=== PATIENT | female | born 1935 | race Caucasian/White ===

== ENCOUNTER 2024-10-17 08:32 | Emergency (ER) | payer MEDICARE, MEDICAID, SELFPAY ==
[2024-10-17 08:45] VITALS: BP 125/85; PULSE 96; RESP 16; TEMP 37; O2SAT 98; BMI 21.0
[2024-10-17 09:38] LABS: MANUAL DIFF FLAG NO
[2024-10-17 09:40] LABS: Basophils Percent Auto 0.5 % (0-2); Eosinophils Absolute Auto 0.1 X10*3/uL (0.0-0.4); Eosinophils Percent Auto 1.7 % (0-4); Hematocrit 43.8 % (37.0-47.0); Hemoglobin 14.8 g/dl (12.0-16.0); Imm Gran Abs Auto 0.01 X10*3/uL (0.00-0.03); Imm Gran Pct Auto 0.2 % (0.0-0.4); Lymphocytes Absolute Auto 1.6 X10*3/uL (1.2-4.9); Lymphocytes Percent Auto 23.4 % (20-40); Mean Corpuscular HGB Conc 33.8 g/dl (31.0-35.0); Mean Corpuscular Hemoglobin 30.9 pg (27.0-33.0); Mean Corpuscular Volume 91.4 fL (80.0-98.0); Mean Platelet Volume 9.9 fL (9.4-12.3); Monocytes Absolute Auto 0.6 X10*3/uL (0.1-1.2); Monocytes Percent Auto 8.4 % (2-11); Neutrophils Absolute Auto 4.4 x10*3/uL (2.0-8.3); Neutrophils Percent Auto 65.8 % (45-73); Platelet Count 219 X10*3/uL (160-400); Red Blood Count 4.79 X10*6/uL (4.20-5.50); Red Cell Distribution Width 12.6 % (11.0-16.0); White Blood Count 6.6 X10*3/uL (4.8-10.8)
[2024-10-17 09:56] LABS: Alanine Aminotransferase 15 U/L (0-31); Albumin Level 3.8 g/dL (3.5-5.0); Alkaline Phosphatase 86 U/L (39-117); Anion Gap 14 (12-20); Aspartate Amino Transferase 18 U/L (5-31); Bilirubin Total 0.8 mg/dL (0.0-1.0); Blood Urea Nitrogen 13 mg/dL (9-16); Calcium 10.3 mg/dL (8.4-10.2); Carbon Dioxide 25 mmol/L (22-29); Chloride 101 mmol/L (96-108); Creatinine Clr Calc Pharmacy 35.8; Estimated Glomerular Filt Rate > 60; Potassium 4.8 mmol/L (3.3-5.1); Sodium 135 mmol/L (135-145); Total Protein 7.7 g/dL (6.5-8.0)
[2024-10-17 09:58] LABS: Glucose Random 473 mg/dL (60-115)
[2024-10-17 10:16] LABS: Appearance Urine Clear; Color Urine Yellow; Glucose Urine UA >=1000 mg/dL (Negative); Leukocyte Esterase Urine Negative (Negative); Nitrite Urine Negative (Negative); Specific Gravity - Urine >= 1.030 (1.005-1.025); UMIC TRIGGER UACC YES; Urine Blood Negative (Negative); Urine Ketones Negative (Negative); Urine Protein Trace mg/dL (Neg-Trace)
[2024-10-17 10:22] LABS: Bacteria Urine None Seen (None Seen); Hyaline Casts Urine 0-2 /LPF (0-2); RBC Urine 0-2 /HPF (0-2); Squamous Epithelial Cell Urine 0-2 /HPF (0-2); WBC Urine 0-5 /HPF (0-5)
--- OUTSIDE RECORDS SUMMARY | 2024-10-17 10:24 | XMS_ITS | Encounter Summary ---
Author Organization [employer] Address [address] [facility] 7t [place] [address] Care Team Providers Care Satellite Dish Technician Name Role Phone Ashley Hoffman MD Primary Care Provider [phone] Reason for Visit * Reason Onset Date Comments NEW PATIENT APPOINTMENT 10/16/2024 URGENT Encounter Details Date Type Department Care Team ([facility] st Contact Info) Description 10/16/2024 Telephone [facility] [address] [place] [address] Sarah Jarrett RN [address] [place] [address] NEW PATIENT APPOINTMENT (URGENT) Social History Tobacco Use Types Packs/Day Years Used Date Smoking Tobacco: Never Assessed Comments Unknown Sex and Gender Information Value Date Recorded Sex Assigned at Female 06/27/2022 10:23 AM EDT Legal Sex Female 10:23 AM EDT Gender Identity Female 06/27/2022 10:23 AM EDT Sexual Orientation Straight 06/27/2022 10 :23 AM EDT documented as of this encounter Miscellaneous Notes * Telephone Encounter - Ayesha Kearney - 10/16/2024 2:03 PM EST (2x ) Outgoing call to pt to book NEUROLOGY PHYSICIAN ASSISTANT appt. No answer. Left message. * Telephone Encounter - Sarah Jarrett RN - 10/16/2024 10:58 AM EST Please contact for an urgent NEUROLOGY PHYSICIAN ASSISTANT appt. documented in this encounter Plan of Treatment Not on file documented as of this encounter Visit Diagnoses Not on filedocumented in this encounter Care Teams Satellite Dish Technician Relationship Specialty Start Date End Date Ashley Hoffman MD [address] [place] [address] PCP - General Family Medicine 04/26/21 documented as of this encounter
--- OUTSIDE RECORDS SUMMARY | 2024-10-17 10:24 | XMS_ITS | Clinical Summary ---
Author Organization [employer] Address [address] [facility] 7t [place] [address] Care Team Providers Care Supply Chain Generalist Name Role Phone Ashley Hoffman MD Primary Care Provider [phone] Encounters Date Type Department Care Team Description 10/16/[address] [facility] [address] [place] [address] Sarah Jarrett, RN NEW PATIENT APPOINTMENT (URGENT) from Last 3 Months Social History Tobacco Use Types Packs/Day Years Used Date Smoking Tobacco: Never Assessed Comments Unknown Sex and Gender Information Value Date Recorded Sex Assigned at Female 06/27/2022 10:23 AM EDT Legal Sex Female 10:23 AM EDT Gender Identity Female 06/27/2022 10:23 AM EDT Sexual Orientation Straight 06/27/2022 10 :23 AM EDT Last Filed Vital Signs Vital Sign Reading Time Taken Comments Blood Pressure 140/100 01/12/2021 12:05 AM EDT Pulse 72 01/12/2021 12:05 AM EDT Temperature - - Respiratory Rate - - Oxygen Saturation - - Inhaled Oxygen Concentration - - Weight 52 kg (114 lb 9.6 oz) 01/12/2021 12:05 AM EDT Height 152.4 cm (5') 01/12/2021 12:05 AM EDT Body Mass Index 22.38 01/12/2021 12:05 AM EDT Plan of Treatment Health Maintenance Due Date Last Done Comments Depression Screening 1935 SDOH Screening 1935 Alcohol/Substance Use Screening 1947 Tobacco Screening 1947 DTaP/Tdap/Td Vaccines (1 - Tdap) 01/14/1955 Pneumococcal Vaccine: 50+ Ye ars (1 of 1 - PCV) 01/14/1986 Zoster Vaccines (1 of 2) 01/14/1986 RSV Patients and Pa tients Aged 60 years or older (1 - 1-dose 75+ series) 01/14/2011 COVID-19 Vaccine (2 - 2023-2 5 season) 2024 07/14/2021 Influenza Vaccine (#1) 2024 Lipid Panel 01/12/2026 01/12/2021 HIB Vaccines Aged Out No longer eligi ble based on patient's age to complete this topic HPV Vaccines Aged Out No longer eligi ble based on patient's age to complete this topic Hepatitis A Vaccines Aged Out No long er eligible based on patient's age to complete this topic Hepatitis B Vaccines Aged Out No long er eligible based on patient's age to complete this topic IPV Vaccines Aged Out No longer eligi ble based on patient's age to complete this topic Meningococcal Vaccine Aged Out No oswaldo alvarado eligible based on patient's age to complete this topic RSV under 20 months Aged Out No longe r eligible based on patient's age to complete this topic Rotavirus Vaccines Aged Out No longer eligible based on patient's age to complete this topic Procedures Procedure Name Priority Date/Time Associated Diagnosis Comments LIPID PANEL, STANDARD Routine 01/12/2021 9:55 AM EDT from Last 3 Months or Most Recently Relevant to Health Maintenance Results * (ABNORMAL) LIPID PANEL, STANDARD (01/12/2021 9:55 AM EDT) Chol/HDLC Ratio 3.1 <5.0 (calc) [facility] Cholesterol, Total 199 <200 mg/dL [facility] HDL Cholesterol 64 > OR = 50 mg/dL [facility] LDL Cholesterol 113(H) mg/dL (calc) [facility] Comment: Reference range: <100 ?? Desirable range <100 mg/dL for primary prevention; ?? <70 mg/dL for patients with CHD or diabetic patients ?? with > or = 2 CHD risk factors. ?? LDL-C is now calculated using the Flori ?? calculation, which is a validated novel method providing ?? better accuracy than the Friedewald equation in the ?? estimation of LDL-C. ?? Bijan PRATER et al. AIYANA. 2013;310(19): 0588-0960 ?? (http://education.Kii.eco4cloud/faq/TMG874) Non-HDL Cholesterol 135(H) <130 mg/dL (calc) [facility] Comment: For patients with diabetes plus 1 major ASCVD risk ?? factor, treating to a non-HDL-C goal of <100 mg/dL ?? (LDL-C of <70 mg/dL) is considered a therapeutic ?? option. Triglycerides 117 <150 mg/dL [facility] 01/12/2021 9:55 AM EDT us Leah Sahni MD LAB BLOOD ORDERABLES Final Re sult [facility] [address] from Last 3 Months or Most Recently Relevant to Health Maintenance Insurance * Guarantor: Nancy Villalta Account Type Relation to Patient Date of Phone Billing Address Personal/Family Self 1935 [address] [facility] [address] [place] [id number] [facility] STANDARD MEDICARE Care Teams Supply Chain Generalist Relationship Specialty Start Date End Date Ashley Hoffman MD [address] [place] [id number] PCP - General Family Medicine 04/26/21
--- OUTSIDE RECORDS SUMMARY | 2024-10-17 10:24 | XMS_ITS ---
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) ACTIVE 07/07/2018 HYPO-OSMOLALITY AND HYPONATREMIA (E87.1 - ICD-10-CM) A CTIVE 07/07/2018 HYPOKALEMIA (E87.6 - ICD-10-CM) ACTIVE 8 METABOLIC ENCEPHALOPATHY (G93.41 - ICD-10-CM) ACTIVE 07/07/2018 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
[2024-10-17 10:39] LABS: Beta-Hydroxybutyrate 0.06 mmol/L (0.02-0.27); Magnesium 2.1 mg/dL (1.6-2.6)
== END 2024-10-17 19:53 | disposition left against medical advice (07) ==
PROVIDERS: Emergency Medicine; Physician Assistant; Emergency Provider Emergency Medicine
DX: R41.0 Disorientation, unspecified (principal); Z79.899 Other long term (current) drug therapy
CPT/HCPCS: 36415; 80053; 81001; 82010; 83735; 85025; 99281; 99282

== ENCOUNTER 2024-10-19 10:17 | Emergency (ER) | payer MEDICARE, MEDICAID, SELFPAY ==
--- NOTE | 2024-10-19 | ECG_ITS ---
Test Reason : ALTERED MENTAL STAT Blood Pressure : */* mmHG Vent. Rate : 76 BPM Atrial Rate : 76 BPM P-R Int : 132 ms QRS Dur : 100 ms QT Int : 400 ms P-R-T Axes : 69 -49 159 degrees QTcB Int : 450 ms Sinus rhythm with marked sinus arrhythmia Left axis deviation Left ventricular hypertrophy with repolarization abnormality ( Cj product ) Abnormal ECG When compared with ECG of 05-Jul-2018 10:19, Significant changes have occurred Referred By: Generic ED Physician Electronically Signed By: ABIODUN FORTUNE
--- NOTE | ~2024-10-19 | MR_ITS ---
EXAMINATION: MR BRAIN WITHOUT THEN WITH IV CONTRAST HISTORY: Subcentimeter hyperattenuating parafalcine lesion on unenhanced CT. Evaluate for hemorrhage versus meningioma. TECHNIQUE: Sagittal T1, and axial T1, FLAIR, T2, gradient echo, and diffusion weighted MR images of the brain were obtained. Subsequently, sagittal, axial, and coronal T1-weighted images were obtained after the administration of intravenous gadolinium. 5.5 mL Gadavist was administered. COMPARISON: Correlation is made with the unenhanced head CT scans dated 10/20/2024 and 10/19/2024. FINDINGS: There is diffuse prominence of the ventricular system and cortical sulci, consistent with atrophy. Periventricular and subcortical white matter hyperintensities are noted on the FLAIR and T2-weighted images which are nonspecific, but often seen in the setting of small vessel ischemic disease. There is no mass effect or midline shift. No intra or extra-axial fluid collections are identified. There are no foci of restricted diffusion. There is a 5 mm enhancing nodule along the right aspect of the falx consistent with a meningioma. Normal vascular flow voids are noted in the basilar and carotid arteries. The visualized paranasal sinuses are clear. MR/MR head/brain wo/w con IMPRESSION: 1. 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 No evidence of intracranial hemorrhage. 2. No acute intracranial abnormality. Electronically signed by: Javier Sahu MD 10/21/2024 02:30 PM [facility]
--- NOTE | ~2024-10-19 | XR_ITS ---
XR SCREENING FOR MRI Comparison: None. TECHNIQUE: PA and lateral views of the chest, and AP view of the abdomen were obtained. FINDINGS: There is no radiopaque metallic foreign body within the chest, abdomen, or pelvis. These regions are cleared for MRI. The cardiac, hilar, and mediastinal contours are normal. The aorta is calcified and tortuous. The lungs are clear bilaterally. There is no pleural effusion or pneumothorax. Review of the abdomen demonstrates a normal/nonspecific bowel gas pattern and diffuse vascular calcifications. No organomegaly. There are approximately three 5 mm calculi overlying the right renal shadow suspicious for renal stones. There are degenerative changes throughout the spine. There are mild degenerative changes in both hip joints and SI joints. XR/XR pre mri screening IMPRESSION: 1. No metallic foreign body identified. Examination is clear for MRI. 2. There is no active pulmonary disease. 3. There are 3 probable nonobstructing right renal stones measuring up to 5 mm. 4. There are vascular calcifications. Electronically signed by: Kaden Kingston MD 10/21/2024 12:19 PM [facility]
--- NOTE | ~2024-10-19 | CT_ITS ---
CLINICAL HISTORY: Mental status change CT head without contrast Comparison: CT/KS/SR - BRAIN WO IV CONTRAST [id number] - 07/03/18 04:08 EST Findings: There is a new hyperattenuating lesion at the right aspect of the anterior falx measuring 4 x 5 x 6 mm ( series 2, image 28, series 8, image 86 and series 7, image 33 ). There is a small adjacent calcification which may indicate a meningioma ( series 7, image 35). The small calcification was also seen on the prior study (see series 3, image 29 on the prior study). Basal ganglia calcifications. No extra-axial fluid collection. No hydrocephalus, mass-effect or herniation. Suarez-white differentiation is maintained. There is patchy hypoattenuation of the periventricular and deep white matter, which is most likely the sequela of moderate chronic small vessel ischemic disease and is similar to the prior study. No acute orbital pathology. No acute soft tissue abnormality. No fracture. The visualized paranasal sinuses are predominantly clear. The mastoid air cells are clear. Impression: 6 mm focus of increased attenuation at the right aspect of the falx anteriorly, new since the prior study. This could be acute hemorrhage. A hypercellular lesion such as a meningioma may also be considered. Short interval follow up CT or further evaluation with brain MR with and without contrast may be helpful. This document has been electronically signed by: Annita Liang MD on 10/19/2024 13:21:23
--- NOTE | ~2024-10-19 | CT_ITS ---
CLINICAL HISTORY: recheck ich CT head without contrast Comparison: CT/SR - CT HEAD/BRAIN WO IV CON - 10/19/24 11:[address]/NM/SR - BRAIN WO IV CONTRAST [id number] - 07/03/18 04:08 EST Findings: The hyperattenuating lesion along the right aspect of the falx anteriorly is unchanged, measuring up to 6 mm. Basal ganglia calcifications. No extra-axial fluid collection. No hydrocephalus, mass-effect or herniation. Suarez-white differentiation is maintained. There is patchy hypoattenuation of the periventricular and deep white matter, which is most likely the sequela of moderate chronic small vessel ischemic disease and is similar to the prior studies . No acute orbital pathology. No acute soft tissue abnormality. No fracture. The visualized paranasal sinuses are predominantly clear. The mastoid air cells are clear. Impression: Unchanged subcentimeter hyperattenuating parafalcine lesion is favored to be a meningioma. This can be confirmed with brain MR with and without contrast. Acute intracranial hemorrhage is considered less likely. This document has been electronically signed by: Annita Liang MD on 10/20/2024 19:56:58
[2024-10-19 10:24] VITALS: BP 152/74; PULSE 83; PULSE 89; RESP 16; O2SAT 96; O2SAT 97; BMI 21.2
[2024-10-19 10:35] LABS: Glucose, Whole Blood 491 mg/dL (60-115)
[2024-10-19 10:50] LABS: MANUAL DIFF FLAG NO
[2024-10-19 10:52] LABS: Basophils Percent Auto 0.4 % (0-2); Eosinophils Absolute Auto 0.1 X10*3/uL (0.0-0.4); Eosinophils Percent Auto 1.1 % (0-4); Hematocrit 43.8 % (37.0-47.0); Hemoglobin 15.1 g/dl (12.0-16.0); Imm Gran Abs Auto 0.02 X10*3/uL (0.00-0.03); Imm Gran Pct Auto 0.3 % (0.0-0.4); Lymphocytes Absolute Auto 1.1 X10*3/uL (1.2-4.9); Lymphocytes Percent Auto 16.1 % (20-40); Mean Corpuscular HGB Conc 34.5 g/dl (31.0-35.0); Mean Corpuscular Volume 89.9 fL (80.0-98.0); Monocytes Absolute Auto 0.5 X10*3/uL (0.1-1.2); Monocytes Percent Auto 6.4 % (2-11); Neutrophils Absolute Auto 5.3 x10*3/uL (2.0-8.3); Neutrophils Percent Auto 75.7 % (45-73); Platelet Count 228 X10*3/uL (160-400); Red Blood Count 4.87 X10*6/uL (4.20-5.50); Red Cell Distribution Width 12.5 % (11.0-16.0); White Blood Count 7.1 X10*3/uL (4.8-10.8)
[2024-10-19 10:57] LABS: VBG Base Excess 0.7 mmol/L; VBG HCO3 26 mmol/L (22-26); VBG pCO2 43 mmHg; VBG pH 7.38 (7.32-7.43); VBG pO2 42 mmHg
[2024-10-19 10:58] LABS: Venous Blood Gas Refer to POC result
--- NOTE | 2024-10-19 11:15 | ED.GENADULT ---
HPI - General Adult General Chief complaint: Altered Mental Status Stated complaint: ams/hyperglycemic 410 Time Seen by Provider: 10/19/24 11:11 Source: patient, EMS and television repairer Mode of arrival: EMS Limitations: altered mental status History of Present Illness ED Provider: DR. Macario HPI narrative: 89-year-old female came in by ambulance for a change of mental status, patient is a limited historian may be secondary to dementia, patient is unable to provide a valid history even with the television repairer, unsuccessful attempt to call daughter's number in the chart (wrong phone number), patient stated that she has no complaint, no headache, no neck pain, no CP, no SOB, no abdominal pain, no nausea, no vomiting, no fever. Related Data Allergies Allergy/AdvReac Type Severity Reaction Status Date / Time No Known Allergies Allergy Unverified 10/19/24 10:26 [No Known Allergies*] Review of Systems Review of Systems: Yes Unobtainable due to mental status PMFSH Social History Social History Advance Directives: No Advance Directives Information Provided: No Physical Exam ED Vital Signs: Vital Signs - 24 hr 10/19/24 10:24 Pulse Rate 83 Respiratory Rate 16 Blood Pressure 152/74 H Pulse Oximetry 97 Oxygen Delivery Method Room Air BMI result Body Mass Index 21.2 Vital signs have been reviewed and appear to be correct. Blood pressure elevated. Heart rate normal. Respiratory rate normal. Temperature normal. Oxygen saturation normal. Appearance: Alert. Disoriented x4 No acute distress. Head: Normal external exam. Normocephalic. Atraumatic. No Stevens signs noted. No raccoon eyes noted Eyes: PERRLA. EOMI. Conjunctiva and sclera normal. Eyelids normal. ENT: TM's Normal. Pharynx normal. Uvula midline. Moist mucous membranes. No trismus noted. No drooling noted. No muffled voice noted. Neck: Normal inspection. Neck supple. FROM. No adenopathy. Thyroid Normal. No meningeal signs. No neck mass noted. CVS: Normal heart rate and rhythm. Heart sound normal. No murmurs noted. Pulses normal throughout. Respiratory: No respiratory distress. Painless inspiration. Breath sounds normal. No wheezes/rales/rhonchi noted. Chest nontender. No accessory muscle usage noted or decreased air movement noted. Abdomen: Soft and nontender. Bowel sounds normal in all 4 quadrants. No distention noted. No organomegaly noted. No visible injury noted. Back: No CVA tenderness. Full range of motion noted. Skin: Skin warm and dry. Normal skin color. Normal skin turgor. No rashes/lesions/lacerations noted. Extremities: No lower extremity edema. Extremities exhibit normal range of motion. Extremities nontender. Neuro: Disoriented x4 Cranial nerve exam: II-XII are grossly intact No motor deficit. No sensory deficit. Reflexes normal. Course Reevaluation(s) Reevaluation #1: 89-year-old female unknown past medical history, can not contact family for further history due to a wrong phone number in the chart, as per EMS history patient was evicted from her place and currently staying [facility], daughter can not take the patient to the [facility] anymore patient now is in the hospital with no complaints, head CT is a concern of area of hypoattenuation, no evidence of increased ICP or midline shift on the CT, the case was discussed with Dr. Okeefe in neuro ICU at [facility] who recommended to accept transfer to the hospitalist service and initiate the workup for abnormal head CT at [facility]. Bed placement at [facility] indicate that the hospital is at full capacity and patient needs to be kept in the emergency department until bed is available at [facility]. Will keep the patient physician observation. Time: 16:09 Medications Administered Generic Name Dose Route Start Last Admin Trade Name Freq PRN Reason Stop Dose Admin Metformin HCl 500 mg 10/19/24 11:45 10/19/24 12:46 Metformin Hcl 500 Mg Tablet PO 500 mg BID YOVANA Administration Medical Decision Making Differential Diagnosis Differential Diagnoses: The differential diagnosis associated with the presentation includes (Dementia, mental status change, UTI, electrolyte derangement, severe anemia, intracranial bleed.) Admission/Observation Consideration of admission/observation: Escalation of care including admission/observation considered Consult Healthcare Provider Management of the patient was discussed with: Hospitalist (Dr. Graham from [facility].) and General Maintenance Technician (Dr. Okeefe neuro ICU at [facility].) Lab Data MDM Lab Attestation statement: I reviewed the patient's lab results. 10/19/24 10:45 10/19/24 11:41 Labs: Lab Results 10/19/24 10/19/24 10/19/24 Range/Units 10:30 10:45 10:51 WBC 7.1 (4.8-10.8) X10*3/uL RBC 4.87 (4.20-5.50) X10*6/uL Hgb 15.1 (12.0-16.0) g/dl Hct 43.8 (37.0-47.0) % MCV 89.9 (80.0-98.0) fL MCH 31.0 (27.0-33.0) pg MCHC 34.5 (31.0-35.0) g/dl RDW 12.5 (11.0-16.0) % Plt Count 228 (160-400) X10*3/uL MPV 10.0 (9.4-12.3) fL Immature Gran % (Auto) 0.3 (0.0-0.4) % Neut % (Auto) 75.7 H (45-73) % Lymph % (Auto) 16.1 L (20-40) % Coryell % (Auto) 6.4 (2-11) % Eos % (Auto) 1.1 (0-4) % Baso % (Auto) 0.4 (0-2) % Lymph # (Auto) 1.1 L (1.2-4.9) X10*3/uL Coryell # (Auto) 0.5 (0.1-1.2) X10*3/uL Eos # (Auto) 0.1 (0.0-0.4) X10*3/uL Baso # (Auto) 0.0 (0.0-0.2) X10*3/uL Abs Immat Gran (auto) 0.02 (0.00-0.03) X10*3/uL Absolute Neuts (auto) 5.3 (2.0-8.3) x10*3/uL Absolute Nucleated RBC 0.000 (0.0-0.012) X10*3/uL Nucleated RBC % (auto) 0.0 (0.0-0.2) /100WBC VBG pH 7.38 (7.32-7.43) VBG pCO2 43 mmHg VBG pO2 42 mmHg VBG HCO3 26 (22-26) mmol/L VBG O2 Saturation 70.0 % VBG Base Excess 0.7 mmol/L Sodium (135-145) mmol/L Potassium (3.3-5.1) mmol/L Chloride (96-108) mmol/L Carbon Dioxide (22-29) mmol/L Anion Gap (12-20) BUN (9-16) mg/dL Creatinine (0.5-1.4) mg/dL Estim Creat Clear Calc Estimated GFR POC Glucose 491 H* (60-115) mg/dL Random Glucose (60-115) mg/dL Estimat Average Glucose 243 mg/dL Hemoglobin A1c % 10.1 H (<6.0) % Calcium (8.4-10.2) mg/dL Magnesium (1.6-2.6) mg/dL Total Bilirubin (0.0-1.0) mg/dL AST (5-31) U/L ALT (0-31) U/L Alkaline Phosphatase (39-117) U/L Total Protein (6.5-8.0) g/dL Albumin (3.5-5.0) g/dL Beta-Hydroxybutyrate (0.02-0.27) mmol/L Influenza Type A (PCR) NEGATIVE (Negative) Influenza Type B (PCR) NEGATIVE (Negative) RSV RNA Qual (PCR) NEGATIVE (Negative) SARS-CoV-2 RNA (RT-PCR) NEGATIVE (Negative) 10/19/24 10/19/24 Range/Units 11:41 12:21 WBC (4.8-10.8) X10*3/uL RBC (4.20-5.50) X10*6/uL Hgb (12.0-16.0) g/dl Hct (37.0-47.0) % MCV (80.0-98.0) fL MCH (27.0-33.0) pg MCHC (31.0-35.0) g/dl RDW (11.0-16.0) % Plt Count (160-400) X10*3/uL MPV (9.4-12.3) fL Immature Gran % (Auto) (0.0-0.4) % Neut % (Auto) (45-73) % Lymph % (Auto) (20-40) % Coryell % (Auto) (2-11) % Eos % (Auto) (0-4) % Baso % (Auto) (0-2) % Lymph # (Auto) (1.2-4.9) X10*3/uL Coryell # (Auto) (0.1-1.2) X10*3/uL Eos # (Auto) (0.0-0.4) X10*3/uL Baso # (Auto) (0.0-0.2) X10*3/uL Abs Immat Gran (auto) (0.00-0.03) X10*3/uL Absolute Neuts (auto) (2.0-8.3) x10*3/uL Absolute Nucleated RBC (0.0-0.012) X10*3/uL Nucleated RBC % (auto) (0.0-0.2) /100WBC VBG pH (7.32-7.43) VBG pCO2 mmHg VBG pO2 mmHg VBG HCO3 (22-26) mmol/L VBG O2 Saturation % VBG Base Excess mmol/L Sodium 134 L (135-145) mmol/L Potassium 4.4 (3.3-5.1) mmol/L Chloride 103 (96-108) mmol/L Carbon Dioxide 21 L (22-29) mmol/L Anion Gap 14 (12-20) BUN 17 H (9-16) mg/dL Creatinine 0.91 (0.5-1.4) mg/dL Estim Creat Clear Calc 35.3 Estimated GFR 58 POC Glucose 373 H* (60-115) mg/dL Random Glucose 429 H* (60-115) mg/dL Estimat Average Glucose mg/dL Hemoglobin A1c % (<6.0) % Calcium 10.6 H (8.4-10.2) mg/dL Magnesium 2.0 (1.6-2.6) mg/dL Total Bilirubin 0.9 (0.0-1.0) mg/dL AST 21 (5-31) U/L ALT 14 (0-31) U/L Alkaline Phosphatase 91 (39-117) U/L Total Protein 7.9 (6.5-8.0) g/dL Albumin 3.8 (3.5-5.0) g/dL Beta-Hydroxybutyrate 0.09 (0.02-0.27) mmol/L Influenza Type A (PCR) (Negative) Influenza Type B (PCR) (Negative) RSV RNA Qual (PCR) (Negative) SARS-CoV-2 RNA (RT-PCR) (Negative) Independent Interpretation I performed an independent interpretation of an: CT Scan (Head: 6 mm focus of increased attenuation at the right aspect of the falx anteriorly, new since the prior study. This could be acute hemorrhage. A hypercellular lesion such as a meningioma may also be considered. Short interval follow up CT or further evaluation with brain MR with and without co) Radiology Impression Discussion of test interpretation with radiology: I have reviewed the radiologist's reading. Discharge Plan Discharge Clinical Impression: Altered mental status, Abnormal CT of the head [facility] Details: [facility] Print Language: Brazilian
[2024-10-19 11:20] LABS: Estimated Average Glucose 243 mg/dL; Hemoglobin A1C 338.1012 umol/L; Hemoglobin A1c % 10.1 % (<6.0); Total Hemoglobin (HGBA1C) 3899.5026 umol/L
[2024-10-19 11:27] LABS: Influenza A PCR NEGATIVE (Negative); Influenza B PCR NEGATIVE (Negative); Resp Syncy Virus RNA Qual PCR NEGATIVE (Negative); SARS COV2 PCR INHOUSE NEGATIVE (Negative)
[2024-10-19 12:05] LABS: Beta-Hydroxybutyrate 0.09 mmol/L (0.02-0.27)
[2024-10-19 12:10] LABS: Alanine Aminotransferase 14 U/L (0-31); Albumin Level 3.8 g/dL (3.5-5.0); Alkaline Phosphatase 91 U/L (39-117); Anion Gap 14 (12-20); Aspartate Amino Transferase 21 U/L (5-31); Bilirubin Total 0.9 mg/dL (0.0-1.0); Blood Urea Nitrogen 17 mg/dL (9-16); Calcium 10.6 mg/dL (8.4-10.2); Carbon Dioxide 21 mmol/L (22-29); Chloride 103 mmol/L (96-108); Creatinine Clr Calc Pharmacy 35.3; Estimated Glomerular Filt Rate 58; Glucose Random 429 mg/dL (60-115); Potassium 4.4 mmol/L (3.3-5.1); Sodium 134 mmol/L (135-145); Total Protein 7.9 g/dL (6.5-8.0)
[2024-10-19 12:25] LABS: Glucose, Whole Blood 373 mg/dL (60-115)
[2024-10-19] MEDS: metFORMIN HCl 500 MG TABLET PO ×2 (12:46→23:29)
--- NOTE | 2024-10-19 19:28 | PC.NURSE ---
Pt reported to be evicted recently, daughter has been bringing her to [facility] for the last 5 nights, pt has history of dementia and family feels she is not safe to be out. Pt has been relocated from [place], since being here has not taken any medications, there is poor medical history at this time, POC have been elevated. Pt reporting she does not need to be here. Pt CT scan concerns for new bleed, pt to be transferred to [facility] when bed available. Pt has been changed over, diet order placed, pt remains on monitor a this time, all needs met. Pt did ambulate with stand by assist to BR.
[2024-10-19 19:31] VITALS: BP 157/81; PULSE 69; RESP 19; TEMP 36.8; O2SAT 97
[2024-10-19 22:22] LABS: Glucose, Whole Blood 362 mg/dL (60-115)
[2024-10-19 23:06] VITALS: BP 168/78; PULSE 71; RESP 22; O2SAT 94
[2024-10-20 02:12] LABS: Glucose, Whole Blood 293 mg/dL (60-115)
[2024-10-20] MEDS: Insulin Lispro 100 UNIT/ML 3 ML VIAL SUBCUT ×2 (02:12→21:19)
[2024-10-20 02:31] VITALS: BP 136/90; PULSE 59; RESP 22; O2SAT 93
--- NOTE | 2024-10-20 05:18 | PC.NURSE ---
Patient is awake, oriented to self and familiar person, no focal neurological deficits noted. Patient ambulated to the restroom with 1 assist, gait is slow, but steady. Patient resting on stretcher at this time.
[2024-10-20 05:55] VITALS: BP 130/70; PULSE 76; RESP 16; O2SAT 96
--- NOTE | 2024-10-20 08:19 | PHA.MEDREC ---
Pharmacy Consult ? Medication Reconciliation Pharmacy has attempted to complete the medication reconciliation. Patient is AMS, no claims available and patients contacts have out of service phone numbers.
[2024-10-20] MEDS: metFORMIN HCl 500 MG TABLET PO ×2 (12:07→21:18)
[2024-10-20 15:13] VITALS: BP 179/95; PULSE 95; RESP 16; TEMP 36.2; O2SAT 98
[2024-10-20] MEDS: Insulin Glargine,Hum.rec.anlog 100 UNIT/ML 10 ML VIAL 14 UNIT SUBCUT (19:42)
[2024-10-20 19:50] VITALS: BP 167/82; PULSE 85; RESP 16; TEMP 36.7; O2SAT 95
[2024-10-20 21:14] LABS: Glucose, Whole Blood 293 mg/dL (60-115)
[2024-10-21 03:29] VITALS: BP 184/84; PULSE 72; RESP 18; TEMP 36.8; O2SAT 97
[2024-10-21 07:12] LABS: Appearance Urine Cloudy; Color Urine Yellow; Glucose Urine UA >=1000 mg/dL (Negative); Leukocyte Esterase Urine Large (3+) (Negative); Nitrite Urine Negative (Negative); UMIC TRIGGER UACC YES; Urine Blood Negative (Negative); Urine Ketones Negative (Negative); Urine Protein Trace mg/dL (Neg-Trace)
[2024-10-21 07:17] LABS: Bacteria Urine 1+ (None Seen); RBC Urine 0-2 /HPF (0-2); Squamous Epithelial Cell Urine 0-2 /HPF (0-2); UACC Culture Trigger YES; WBC Urine >50 /HPF (0-5)
[2024-10-21 07:26] LABS: Glucose, Whole Blood 188 mg/dL (60-115)
--- NOTE | 2024-10-21 07:28 | PC.NURSE ---
Tomasa Villalta (granddaughter) - [phone].
[2024-10-21] MEDS: Insulin Lispro 100 UNIT/ML 3 ML VIAL SUBCUT ×3 (07:45→20:22)
[2024-10-21 07:52] VITALS: BP 153/76; PULSE 74; RESP 15; TEMP 36.7; O2SAT 95
--- NOTE | 2024-10-21 08:10 | PC.NURSE ---
this RN resumed care of pt at 0645. cy[employer]ot speaking only. alert and oriented to self. hx dementia baseline. vss and up to date. pt currently medically cleared at this time - no longer being transferred to [facility] d/t most recent repeated CT scan. IV access removed. pt currently pending PT/CM consult. pt having PT consult completed at this time. plan of care ongoing.
[2024-10-21 08:39] LABS: Amphetamine Screen Urine Not Detected (Not Detect); Barbiturates, Urine Not Detected (Not Detect); Benzodiazepines Screen Urine Not Detected (Not Detect); Buprenorphine Scr Not Detected (Not Detect); Cannabinoid Screen Urine Not Detected (Not Detect); Cocaine Screen Urine Not Detected (Not Detect); Fentanyl, urine Not Detected (Not Detect); Methadone Screen, Urine Not Detected (Not Detect); Opiate Screen Urine Not Detected (Not Detect); Oxycodone Screen Urine Not Detected (Not Detect); Phencyclidine Screen Urine Not Detected (Not Detect)
--- NOTE | 2024-10-21 08:53 | PC.NURSE ---
report given to ANJELICA Borges in overflow.
[2024-10-21] MEDS: metFORMIN HCl 500 MG TABLET PO ×2 (09:09→20:22)
[2024-10-21] MEDS: cefuroxime axetiL 250 MG TABLET PO ×2 (11:39→20:21)
--- NOTE | 2024-10-21 12:20 | PC.NURSE ---
Pt unable to reliably answer MRI screening questionnaire; PA made aware; pt to xray for KUB and CXR to clear her for MRI
[2024-10-21 12:23] LABS: Glucose, Whole Blood 127 mg/dL (60-115)
--- NOTE | 2024-10-21 13:55 | MHC.CM.ED ---
Received case management consult overnight. Patient has a history of dementia. No family present. No HCP on file. Patient was at [facility] in 2018. Left message for their medical records department to see if they have a HCP on file. Waiting for return telephone call. Per Yadira JOHNSTON, MRI is ordered and pending. Continue to monitor for d/c needs.
[2024-10-21] MEDS: gadobutroL 7.5 ML VIAL IVPUSH (14:02)
[2024-10-21 15:00] VITALS: BP 156/82; PULSE 76; RESP 15; TEMP 36.6; O2SAT 95
--- NOTE | 2024-10-21 15:09 | MHC.CM.ED ---
Patient remains in ER overflow. MRI completed. No acute issues. Patient has memory issues. No family present. Spoke with patient's granddaughter, Tomasa, via telephone at [phone]. Patient was living with her daughter, Cathy (Tomasa's mother). However patient and Cathy were evicted from their apartment on 10/15 due to having too many people entering their apartment and Cathy took a package that didn't belong to her. Per Tomasa, Cathy has a substance abuse issue. Tomasa only found out about eviction because she saw her grandmother and mother sitting in a parking lot of a gas station. Tomasa lives in [address] and is not able to have patient live with her. She was taking care of the patient during the day and found a snf for her at night. Tomasa is unable to continue doing this. Patient has [facility]. Will attempt to find LTC placement. Tomasa aware patient may be here a while and placement could be an hour away. Tomasa verbalizes understanding. Continue to monitor for d/c needs.
--- NOTE | 2024-10-21 15:15 | PC.NURSE ---
Employee walking through the Pain department (outside of OV) informed this RN that a patient had wandered into the bathroom after exiting through the back door; it was noted that the camera watching the door was unplugged; pt walked back to room with staff, commode provided, bed alarm on and camera room informed of the incident, enterprise resource analyst made aware
[2024-10-21 16:46] LABS: Glucose, Whole Blood 192 mg/dL (60-115)
[2024-10-21 20:00] VITALS: BP 179/79; PULSE 77; RESP 16; TEMP 36; O2SAT 93
[2024-10-21 20:00] LABS: Glucose, Whole Blood 218 mg/dL (60-115)
--- NOTE | 2024-10-21 20:00 | PC.NURSE ---
Patient alert to person, calm and cooperative. VSS, on room air, lungs clear. no respiratory distress noted. Denies any pain or discomfort. Camera added to bedside for safety. Bed alarm in place.
[2024-10-22 06:00] VITALS: BP 137/73; PULSE 71; RESP 16; TEMP 36.4; O2SAT 95
[2024-10-22 07:46] LABS: Glucose, Whole Blood 126 mg/dL (60-115)
[2024-10-22] MEDS: cefuroxime axetiL 250 MG TABLET PO ×2 (07:56→21:33)
[2024-10-22] MEDS: metFORMIN HCl 500 MG TABLET PO ×2 (07:56→21:33)
--- NOTE | 2024-10-22 10:04 | MHC.CM.ED ---
Addendum entered by Kate Elizabeth 10/22/24 10:16: Clinical updates sent to local facilities following: [facility], [facility], [facility], [facility] Original Note: Patient remains in ER overflow. Met with patient and court interpreter. Patient has dementia but is able to verbalize who her HCP would be. HCP completed, signed and witnessed. Clinical updates sent to facilities still following. Continue to monitor for d/c needs.
[2024-10-22 11:02] VITALS: BP 147/99; PULSE 71; RESP 16; TEMP 36.7; O2SAT 96
[2024-10-22 11:50] LABS: Glucose, Whole Blood 191 mg/dL (60-115)
[2024-10-22] MEDS: Insulin Lispro 100 UNIT/ML 3 ML VIAL SUBCUT ×3 (12:44→21:33)
[2024-10-22 14:00] VITALS: BP 145/95; PULSE 70; RESP 16; TEMP 36.7; O2SAT 97
[2024-10-22 14:47] LABS: Cholesterol 158 mg/dL (<200); HDL Cholesterol 64 mg/dL (>40); LDL Cholesterol Calculated 76 mg/dL (<100); Triglycerides 92 mg/dL (<150)
[2024-10-22 15:01] LABS: Vitamin D 25-OH Total 13.9 ng/mL (>30)
[2024-10-22 15:02] LABS: TSH reflex Free T4 1.18 uIU/mL (0.32-4.0)
[2024-10-22 15:16] LABS: Folate 9.1 ng/mL (> or = 4.0); Vitamin B12 267 pg/mL (200-900)
[2024-10-22 16:38] LABS: Glucose, Whole Blood 200 mg/dL (60-115)
--- NOTE | 2024-10-22 18:25 | PM.PSYCN ---
History of Present Illness Date of Service: 10/22/2024 Chief Complaint: ams/hyperglycemic 410 Reason for Consult: capacity assessment Discussed with referring provider: Yes Sources of Information: patient interviewed, chart reviewed and crisis/core team assessment reviewed HPI Narrative: Mrs. Villalta was brought via EMS after found confused. It appears she was recently living with her daughter who struggles with substance use issues and lost apartment. Mrs. Villalta has hx of memory impairments, multiple medical comorbidities including DM, HTN. She has not seen PCP in several years. Pertinent labs completed in the ED include CBC mostly unremarkable, CMP without electrolyte abnormalities, BUN 17, Creatinine 35.5, A1c 10.6%, Calcium elevated 10.6. UA positive for glucose, +leukocyte, +1 bacteria, culture not completed. Utox negative. She had brain MRI which shows atrophy, periventricular and subcortical white matter changes. It also showed 5mm right falx meningiona (ED attending had consulted with neurology surgeon at [facility] no need for inpatient admission at this point). Pt seen in her room. She reports she is here because she was brought here and was in the streets. She able to tell that she is in the hospital. She knows the month and year. When discussing her medical conditions, she reports she does not have any medical condition. When asked about elevated blood sugars, she reports it's not an issue anymore. She is not able to show understanding of current conditions being treated here, included uncontrolled DM. She denies depressed mood. No SI/HI. No signs of psychosis or delusions. Diagnostics Vital Signs (24Hr): Vital Signs - 24 hr 10/21/24 20:00 10/22/24 06:00 10/22/24 11:02 Temperature 96.8 F 97.6 F 98.0 F Pulse Rate 77 71 71 Respiratory Rate 16 16 16 Blood Pressure 179/79 H 137/73 147/99 H Pulse Oximetry 93 95 96 Oxygen Delivery Method Room Air Room Air Room Air 10/22/24 14:00 Temperature 98.1 F Pulse Rate 70 Respiratory Rate 16 Blood Pressure 145/95 H Pulse Oximetry 97 Oxygen Delivery Method Room Air BMI result Body Mass Index 21.2 Labs 10/19/24 10:45 10/19/24 11:41 Labs: Laboratory Results - last 48 hr 10/20/24 10/21/24 10/21/24 21:10 06:50 07:08 POC Glucose 293 H 188 H Triglycerides Cholesterol LDL Cholesterol, Calc HDL Cholesterol Vitamin B12 25-OH Vitamin D Total Folate TSH Urine Color Yellow Urine Appearance Cloudy Urine pH 5.0 Ur Specific [place] 1.020 Urine Protein Trace Urine Glucose (UA) >=1000 H Urine Ketones Negative Urine Blood Negative Urine Nitrite Negative Ur Leukocyte Esterase Large (3+) H Urine RBC 0-2 Urine WBC >50 H Ur Squamous Epith Cells 0-2 Urine Bacteria 1+ Hyaline Casts 3-5 Urine Opiates Screen Not Detected Ur Buprenorphine Scrn Not Detected Ur Oxycodone Screen Not Detected Urine Methadone Screen Not Detected Urine Fentanyl Screen Not Detected Ur Barbiturates Screen Not Detected Ur Phencyclidine Scrn Not Detected Ur Amphetamines Screen Not Detected U Benzodiazepines Scrn Not Detected Urine Cocaine Screen Not Detected U Marijuana (THC) Screen Not Detected 10/21/24 10/21/24 10/21/24 12:19 16:43 19:56 POC Glucose 127 H 192 H 218 H Triglycerides Cholesterol LDL Cholesterol, Calc HDL Cholesterol Vitamin B12 25-OH Vitamin D Total Folate TSH Urine Color Urine Appearance Urine pH Ur Specific [place] Urine Protein Urine Glucose (UA) Urine Ketones Urine Blood Urine Nitrite Ur Leukocyte Esterase Urine RBC Urine WBC Ur Squamous Epith Cells Urine Bacteria Hyaline Casts Urine Opiates Screen Ur Buprenorphine Scrn Ur Oxycodone Screen Urine Methadone Screen Urine Fentanyl Screen Ur Barbiturates Screen Ur Phencyclidine Scrn Ur Amphetamines Screen U Benzodiazepines Scrn Urine Cocaine Screen U Marijuana (THC) Screen 10/22/24 10/22/24 10/22/24 07:42 11:47 14:13 POC Glucose 126 H 191 H Triglycerides 92 Cholesterol 158 LDL Cholesterol, Calc 76 HDL Cholesterol 64 Vitamin B12 267 25-OH Vitamin D Total 13.9 L Folate 9.1 TSH 1.18 Urine Color Urine Appearance Urine pH Ur Specific [place] Urine Protein Urine Glucose (UA) Urine Ketones Urine Blood Urine Nitrite Ur Leukocyte Esterase Urine RBC Urine WBC Ur Squamous Epith Cells Urine Bacteria Hyaline Casts Urine Opiates Screen Ur Buprenorphine Scrn Ur Oxycodone Screen Urine Methadone Screen Urine Fentanyl Screen Ur Barbiturates Screen Ur Phencyclidine Scrn Ur Amphetamines Screen U Benzodiazepines Scrn Urine Cocaine Screen U Marijuana (THC) Screen 10/22/24 16:35 POC Glucose 200 H Triglycerides Cholesterol LDL Cholesterol, Calc HDL Cholesterol Vitamin B12 25-OH Vitamin D Total Folate TSH Urine Color Urine Appearance Urine pH Ur Specific [place] Urine Protein Urine Glucose (UA) Urine Ketones Urine Blood Urine Nitrite Ur Leukocyte Esterase Urine RBC Urine WBC Ur Squamous Epith Cells Urine Bacteria Hyaline Casts Urine Opiates Screen Ur Buprenorphine Scrn Ur Oxycodone Screen Urine Methadone Screen Urine Fentanyl Screen Ur Barbiturates Screen Ur Phencyclidine Scrn Ur Amphetamines Screen U Benzodiazepines Scrn Urine Cocaine Screen U Marijuana (THC) Screen Imaging Radiology Impressions: ITS Impressions Orbit X-Ray 10/21/24 11:32 IMPRESSION: 1. No metallic foreign body identified. Examination is clear for MRI. 2. There is no active pulmonary disease. 3. There are 3 probable nonobstructing right renal stones measuring up to 5 mm. 4. There are vascular calcifications. Electronically signed by: Kaden Kingston MD 10/21/2024 12:19 PM EST RP Brain MRI 10/21/24 13:25 IMPRESSION: 1. 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 No evidence of intracranial hemorrhage. 2. No acute intracranial abnormality. Electronically signed by: Javier Sahu MD 10/21/2024 02:30 PM EST RP Mental Status Exam Mental Status Exam Narrative: Appearance: wearing hospital gown, fair hygiene, in NAD Behavior: cooperative, friendly Psychomotor: no agitation or retardation noted Speech: clear, normal rate/rhythm/volume, spontaneous TP: linear TC: feeling tired and wanting to sleep Mood: okay Affect: congruent SI: none HI: none VH/AH: no signs Delusions: no delusional content noted or reported Insight/judgment: impaired x 2. Memory/cog: alert, oriented to place, month, vaguely to situation. May benefit from MOCA to further assess memory/cognition. Medications Medications Current Medications Cefuroxime Axetil (Cefuroxime Axetil 250 Mg Tablet) 250 mg PO BID YOVANA Last Admin: 10/22/24 07:56 Dose: 250 mg Dextrose (Dextrose 50 % 25 Gm/50 Ml Syringe) 25 gm IVPUSH Q15M PRN; Protocol PRN Reason: per Hypoglycemia Standing Ord. Glucose (Glucose Gel 15 Gm Gel..Gram.) 15 gm PO Q15M PRN; Protocol PRN Reason: per Hypoglycemia Standing Ord. Insulin Human Lispro (Insulin Lispro 100 Unit/Ml 3 Ml Vial) 0 unit SUBCUT QIDACHS [facility]; Protocol Last Admin: 10/22/24 18:05 Dose: 2 unit Metformin HCl (Metformin Hcl 500 Mg Tablet) 500 mg PO BID [facility] Last Admin: 10/22/24 07:56 Dose: 500 mg Allergies Allergies Allergy/AdvReac Type Severity Reaction Status Date / Time No Known Allergies Allergy Unverified 10/19/24 10:26 [No Known Allergies*] Assessment & Plan Assessment & Plan (1) Major neurocognitive disorder: Status: Acute Code(s): F03.90 - Unspecified dementia, unspecified severity, without behavioral disturbance, psychotic disturbance, mood disturbance, and anxiety (2) Homeless: Status: Acute Code(s): Z59.00 - Homelessness unspecified Plan Mrs. Villalta is an 89 year-old woman with hx of DM, HTN, cognitive impairments who was living with her daughter who struggles with substance use and as a consequence lost housing and is currently homeless. She does NOT show capacity to make medical decisions in that she is not able to show understanding of current medical conditions or appreciation of risks versus benefit of refusing or accepting treatment. Noted pt with elevated SBP 147-179, consider adding hypertensive medication. Order additional labs since she has not been to PCP in years, including TSH, B12, folate, Vit D (note high Ca 10.6) and lipid panel. PLAN 1. Mrs. Villalta does NOT have capacity to make medical decisions. Advise to invoke HCP if one is available. Otherwise, Pt may need guardianship. 2. Order MOCA to assess degree and pattern of impairment. Total time managing care of this patient today ____ minutes.
[2024-10-22 20:47] VITALS: BP 184/84; PULSE 65; RESP 16; TEMP 36.3; O2SAT 97
[2024-10-22 21:32] LABS: Glucose, Whole Blood 179 mg/dL (60-115)
--- NOTE | 2024-10-22 22:01 | PC.NURSE ---
Eva JOHNSTON made aware of BP. amlodipine ordered but not available in overflow pyxis. awaiting on pharmacy.
[2024-10-22] MEDS: amLODIPine Besylate 5 MG TABLET PO (22:07)
[2024-10-23 05:35] VITALS: BP 154/74; PULSE 61; RESP 14; TEMP 36.1; O2SAT 95
--- NOTE | 2024-10-23 05:57 | PC.NURSE ---
Pt slept throughout the night with no events. Breaths even regular and unlabored. Required assistance to the commode 3 to 4 times in the night. Pt voided and moved her bowels with no issues/concerns. VSS. No apparent distress noted. Monitoring is ongoing.
[2024-10-23 07:36] LABS: Glucose, Whole Blood 140 mg/dL (60-115)
[2024-10-23] MEDS: cefuroxime axetiL 250 MG TABLET PO ×2 (08:55→21:16)
[2024-10-23] MEDS: metFORMIN HCl 500 MG TABLET PO ×2 (08:55→21:16)
[2024-10-23 08:56] VITALS: BP 148/86
[2024-10-23] MEDS: amLODIPine Besylate 5 MG TABLET PO (08:56)
[2024-10-23 09:09] VITALS: BP 148/86; PULSE 72; RESP 16; TEMP 36.3; O2SAT 96
[2024-10-23 12:08] LABS: Glucose, Whole Blood 148 mg/dL (60-115)
[2024-10-23 13:31] VITALS: BP 141/68; PULSE 74; RESP 16; TEMP 37.1; O2SAT 97
--- NOTE | 2024-10-23 13:45 | MHC.CM.ED ---
Patient remains in ER overflow. [facility] is able to offer a bed. Spoke with patient's granddaughter, Tomasa, via telephone at [phone]. Tomasa accepts bed offer. MDS will be completed. Sent to [facility] and [facility]. Will need [facility] from [facility] before patient can transfer to facility. Continue to monitor for d/c needs.
[2024-10-23] MEDS: Ergocalciferol (Vitamin D2) 1,250 MCG CAPSULE 1250 MCG PO (16:22)
[2024-10-23] MEDS: Cyanocobalamin (Vitamin B-12) 1,000 MCG/ML VIAL 1000 MCG IM (16:22)
[2024-10-23] MEDS: Insulin Lispro 100 UNIT/ML 3 ML VIAL SUBCUT (16:57)
[2024-10-23 16:58] LABS: Glucose, Whole Blood 181 mg/dL (60-115)
[2024-10-23 17:58] VITALS: BP 129/67; PULSE 68; RESP 16; TEMP 36.9; O2SAT 95
[2024-10-23 21:17] LABS: Glucose, Whole Blood 145 mg/dL (60-115)
--- NOTE | 2024-10-23 21:33 | PC.NURSE ---
Patient is calm and cooperative. Patient denies any pain. POC 145. Patient medicated per MAR. Bed alarm on, camera monitor at bedside, elopement band in place. Plan of care ongoing.
--- NOTE | 2024-10-24 04:44 | PC.NURSE ---
Patient remains asleep comfortably in hospital bed, in no apparent distress, respirations even and unlabored. Call arellano within reach. Bed alarm on, elopement band in place, camera monitor at bedside. Plan of care ongoing.
[2024-10-24 05:58] VITALS: BP 171/78; PULSE 60; RESP 16; TEMP 36.9; O2SAT 97
[2024-10-24 07:48] LABS: Glucose, Whole Blood 161 mg/dL (60-115)
[2024-10-24] MEDS: Insulin Lispro 100 UNIT/ML 3 ML VIAL SUBCUT ×2 (07:51→11:49)
[2024-10-24 09:28] VITALS: BP 134/60
[2024-10-24] MEDS: amLODIPine Besylate 5 MG TABLET PO (09:28)
[2024-10-24] MEDS: cefuroxime axetiL 250 MG TABLET PO (09:29)
[2024-10-24] MEDS: Ergocalciferol (Vitamin D2) 1,250 MCG CAPSULE 1250 MCG PO (09:29)
[2024-10-24] MEDS: metFORMIN HCl 500 MG TABLET PO (09:29)
[2024-10-24 09:47] VITALS: BP 125/66; PULSE 57; RESP 16; TEMP 36.4; O2SAT 94
[2024-10-24 11:46] LABS: Glucose, Whole Blood 231 mg/dL (60-115)
[2024-10-24 12:38] LABS: Amphetamine Screen Urine Not Detected (Not Detect); Barbiturates, Urine Not Detected (Not Detect); Benzodiazepines Screen Urine Not Detected (Not Detect); Buprenorphine Scr Not Detected (Not Detect); Cannabinoid Screen Urine Not Detected (Not Detect); Cocaine Screen Urine Not Detected (Not Detect); Fentanyl, urine Not Detected (Not Detect); Methadone Screen, Urine Not Detected (Not Detect); Opiate Screen Urine Not Detected (Not Detect); Oxycodone Screen Urine Not Detected (Not Detect); Phencyclidine Screen Urine Not Detected (Not Detect)
--- NOTE | 2024-10-24 15:18 | PC.NURSE ---
Addendum entered by Danica Puentes RN 10/24/24 15:41: Follow up discussion with security regarding the details of the encounter with Cathy and the male visitor. This RN asked security not to allow Cathy and the male back to the unit today. Pt is scheduled for d/c to [facility] this afternoon. Original Note: Daughter Cathy and unknown male arrive to visit Pt. Upon this RN entering room Cathy begins to be confrontational demanding to be able to take per Mother with her and refuse to let her be d/c'd to [facility]--of note, Cathy is SSO and unknown male translates for this encoutner. This RN explains that the Pts care has been decided by the HCP with the assistance of [facility] [place] [facility] and at this time Pt required this level of care. Cathy continues to argue that she is the Pts daughter and that she will not be sent to any other facility. This RN continues to explain that she cannot change the plan of care in place as she is not the legally appointed HCP. Cathy continues to have aggressive behaviors as she has a conversation with the Pt (speaking at a raise tone, pointing her finger, slamming her notebook and pen down.) Cathy and the male begin to make their way to exit the Pts room and demands to know the name and location of the facility she will be transported to--contact information provided. Security in the unit escorting another visitor to room 5 at this time and intervened; both visitors were escorted off the unit by security.
--- NOTE | 2024-10-24 16:16 | PC.NURSE ---
Pt scheduled for transport to [facility] location for 3p. 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 Call placed to [facility] @ [phone] for RN to RN report. Spoke with ANJELICA Coyle and report given. ANJELICA Coyle given the opportunity for questions and all questions answered to satisfaction.
[2024-10-24 16:32] LABS: Glucose, Whole Blood 248 mg/dL (60-115)
[2024-10-24 16:34] VITALS: BP 139/63; PULSE 67; RESP 16; TEMP 36.6; O2SAT 95
[2024-10-24 16:40] VITALS: BP 139/63; PULSE 67; RESP 16; TEMP 36.6; O2SAT 95
--- NOTE | 2024-10-25 08:26 | MHC.CM.ED ---
Late entry from 10/24/2024 at 10:00am: Patient can leave for [facility] at 3pm. Nicky YES booked for 3pm. Med nec with chart. Patient, granddaughter/HCP Danica Randolph RN and Selene flores.
== END 2024-10-24 16:50 | disposition skilled nursing facility (03) ==
PROVIDERS: Social Worker; Emergency Provider Emergency Medicine
DX: R41.82 Altered mental status, unspecified (principal); R93.0 Abnormal findings on diagnostic imaging of skull and head, not elsewhere classified; F03.90 Unspecified dementia, unspecified severity, without behavioral disturbance, psychotic disturbance, mood disturbance, and anxiety; D32.9 Benign neoplasm of meninges, unspecified; E11.65 Type 2 diabetes mellitus with hyperglycemia; I10 Essential (primary) hypertension; Z59.00 Homelessness unspecified; Z03.818 Encounter for observation for suspected exposure to other biological agents ruled out
CPT/HCPCS: 0241U; 36415; 70450; 70553; 80053; 80061; 80307; 81001; 82010; 82306; 82607; 82746; 82803; 82947; 83036; 83735; 84443; 85025; 87086; 87147; 93005; 96372; 96374; 97161; 97165; 99285; A9585; J3420

== ENCOUNTER → 2024-10-19 10:32 | Outpatient (BNV) | payer MEDICARE, MEDICAID, SELFPAY | PROVIDERS: Emergency Provider Emergency Medicine; Visit Provider Social Worker | DX: F03.90 Unspecified dementia, unspecified severity, without behavioral disturbance, psychotic disturbance, mood disturbance, and anxiety (principal); Z59.00 Homelessness unspecified | CPT/HCPCS: 99285 ==

== ENCOUNTER → 2024-10-19 10:37 | Outpatient (BNV) | payer MEDICARE, MEDICAID, SELFPAY | PROVIDERS: Emergency Provider Emergency Medicine; Visit Provider Internal Medicine | DX: I51.7 Cardiomegaly (principal); I49.9 Cardiac arrhythmia, unspecified | CPT/HCPCS: 93010 ==

== ENCOUNTER → 2024-10-19 11:34 | Outpatient (BNV) | payer MEDICARE, MEDICAID, SELFPAY | PROVIDERS: Emergency Provider Emergency Medicine; Visit Provider Radiology Diagnostic Radiology | DX: R41.82 Altered mental status, unspecified (principal) | CPT/HCPCS: 70450 ==

== ENCOUNTER → 2024-10-20 18:37 | Outpatient (BNV) | payer MEDICARE, MEDICAID, SELFPAY | PROVIDERS: Emergency Provider Emergency Medicine; Visit Provider Radiology Diagnostic Radiology | DX: D32.0 Benign neoplasm of cerebral meninges (principal) | CPT/HCPCS: 70450 ==

== ENCOUNTER → 2024-10-21 10:28 | Outpatient (BNV) | payer MEDICARE, MEDICAID, SELFPAY | PROVIDERS: Emergency Provider Emergency Medicine; Visit Provider Radiology Diagnostic Radiology | DX: D32.0 Benign neoplasm of cerebral meninges (principal); Z03.823 Encounter for observation for suspected inserted (injected) foreign body ruled out | CPT/HCPCS: 70030 ==